=== PATIENT | female | born 1940 | race Caucasian/White ===

== ENCOUNTER 2019-05-11 23:22 | Emergency (ER) | payer MEDICARE, OTHER, SELFPAY ==
[2019-05-11 23:25] VITALS: BP 113/65; PULSE 71; RESP 18; TEMP 36.9; O2SAT 95; BMI 31.2
--- NOTE | 2019-05-11 23:44 | EKG12_ITS ---
Test Reason : PALPITATIONS Blood Pressure : / mmHG Vent. Rate : 066 BPM Atrial Rate : 066 BPM P-R Int : 156 ms QRS Dur : 100 ms QT Int : 406 ms P-R-T Axes : 024 -25 008 degrees QTc Int : 425 ms Normal sinus rhythm Normal ECG Confirmed by MAYRA LEAVITT, JOSE ELIAS ([id number]), department editor MIRTA MARQUEZ ([id number]) on 05/13/2019 12:52:51 PM Referred By: ISABELLA Confirmed By:JOSE ELIAS NUNEZ MD
--- NOTE | 2019-05-11 23:44 | ED.DCSUM_ITS ---
History of Present Illness Chief Complaint: Anxiety Narrative: Patient is a 79-year-old female who presents with a panic attack. This has happened to her multiple times previously. She woke up with palpitations and developed chest pain or shortness of breath. Patient family states this is typical of her panic attack and has happened on numerous occasions. She took propanolol and her symptoms are now resolved. She denies any recent illness. Past Medical History - Allergies and Home Meds Allergies/Adverse Reactions: Allergies acetaminophen [From Tylenol] Adverse Reaction (Verified 05/11/19 23:23) Other PER FAMILY THEY STATES SHE CAN'T HAVE DUE TO A FATTY LIVER Primary Care Physician: [facility] Doctor,Out of [NON-STAFF] - Past Medical History: - - hypothyroidism, hypertension Smoking Status: Never smoker Review of Systems All systems negative except as indicated General: Denies: Fever Cardiovascular: Reports: Chest pain, Palpitations Respiratory: Reports: Dyspnea Gastrointestinal: Denies: Nausea, Vomiting Physical Exam Vital Signs/Narrative: Vital Signs Temp Pulse Resp BP Pulse Ox 05/11/19 23:25 98.5 F 71 18 113/65 95 Inital Vital Signs reviewed: Yes General: Well nourished Head: Normocephalic Eyes: EOMI ENT: Moist mucous membranes Neck: Supple Cardiovascular: Regular rate, Regular rhythm Respiratory: No distress, CTA bilaterally Abdomen: Soft Skin: Normal color Neurological: Alert Psychological: Normal affect Diagnostic/Tx/Re-eval Impressions Chest X-Ray 05/11/19 23:44 IMPRESSION: Mild bilateral lower lobe linear scarring 5 mm right upper lobe nodular density suspicious for pulmonary nodule, CT chest follow-up is recommended Electronically Signed: Kang Arauz, at 0:16 EDT Tel , Service support , 05/11/19 23:44 CXR [Chest PA and Lateral] [RAD] Stat - Medical Decision Making EKG shows normal sinus rhythm at a rate of 66 with no acute ischemic changes. Chest xray shows a possible 5 mm right upper pulmonary nodule. CT was recommended for follow-up. Patient and family were advised of these findings and patient advised to follow-up as an outpatient. She understands to return for new or worsening symptoms. Patient discharged. ED Disposition - Plan for ED Patient: Disposition: Home or Assisted Living Diagnosis: Panic attack, Pulmonary nodule Instructions: Panic Attack, PULMONARY NODULE, Solitary Referrals: [facility] Doctor,Out of [NON-STAFF] -
--- NOTE | 2019-05-11 23:44 | RAD_ITS ---
STUDY: X-RAY CHEST REASON FOR EXAM: Female, 79 years old. Palpitations and shortness of breath TECHNIQUE: PA and lateral chest COMPARISON: None. FINDINGS: There is mild bilateral lower lobe linear scarring. There is a 5 mm right upper lobe nodular density. There is no demonstrated pleural abnormality. Normal size heart. Normal mediastinum and marium. Normal visualized pulmonary arteries. There is mild ectasia of the thoracic aorta. Normal visualized thoracic spine. Normal visualized ribs, clavicles, and shoulders. There is no demonstrated abnormality of the visualized soft tissue structures of the upper abdomen. RAD/Chest PA and Lateral IMPRESSION: Mild bilateral lower lobe linear scarring 5 mm right upper lobe nodular density suspicious for pulmonary nodule, CT chest follow-up is recommended Electronically Signed: Kang Arauz, at 0:16 EDT Tel , Service support ,
--- NOTE | 2019-05-11 23:52 | ED.RN ---
NO OLD EKGS IN MUSE
[2019-05-12 00:15] VITALS: PULSE 67; RESP 18; O2SAT 97
== END 2019-05-12 00:15 | disposition home or self-care (01) ==
PROVIDERS: Emergency Provider Emergency Medicine
DX: R91.1 Solitary pulmonary nodule (principal); F41.0 Panic disorder [episodic paroxysmal anxiety]
CPT/HCPCS: 71046; 93005; 99284